=== PATIENT | male | born 1985 | race African-American/Black ===

== ENCOUNTER 2020-05-21 11:57 | Emergency (ER) | payer MEDICAID, OTHER ==
[~2020-05-21] VITALS: Ht 182.9 cm; Wt 106.0 kg
[2020-05-21] MEDS ORDERED: LORAZEPAM 1MG TABLET PO ONE (12:45)
[2020-05-21] MEDS ORDERED: LORAZEPAM 2MG/ML CPJ IV ONE (13:00)
[2020-05-21] MEDS ORDERED: SODIUM CHLORIDE 0.9% 1,000 ML IV ONE (13:00)
[2020-05-21 14:13] LABS: BASOPHILS % 0.8 % (0.0-2.0); EOSINOPHILS % 1.2 % (0.0-5.0); HEMATOCRIT. 47.7 % (42.0-52.0); HEMOGLOBIN. 15.4 g/dL (14.0-18.0); LYMPHOCYTES % 41.8 % (20.0-50.0); MEAN CORPUSCULAR VOLUME 77.4 fL (80.0-94.0); MEAN PLATELET VOLUME 9.5 fl (7.4-10.4); MONOCYTES % 7.4 % (2.0-8.0); NEUTROPHILS % 48.8 % (40.0-76.0); PLATELET 214 x1000/uL (130-400); RED BLOOD CELL COUNT 6.16 mill/uL (4.7-6.1); RED CELL DISTRIBUTION WIDTH 15.4 % (11.6-14.6)
[2020-05-21 14:16] LABS: CHLORIDE 103 mEq/L (98-107)
[2020-05-21 14:21] LABS: ETHANOL BLOOD < 10 mg/dL
[2020-05-21 15:37] VITALS: BP 148/76
[2020-05-21 15:50] LABS: CLARITY URINE CLEAR (CLEAR); COLOR URINE YELLOW (YELLOW); KETONES URINE 3+ (NEGATIVE); LEUKOCYTE ESTERASE URINE NEGATIVE (NEGATIVE); NITRITE URINE NEGATIVE (NEGATIVE); OCCULT BLOOD URINE NEGATIVE (NEGATIVE); PH URINE 6.5 (4.5-8.0); PROTEIN URINE NEGATIVE (NEGATIVE); SPECIFIC GRAVITY URINE 1.016 (1.005-1.030)
[2020-05-21 16:18] LABS: *AMPHETAMINES SCREEN URINE PRESUMTIVE POSITIVE (NEGATIVE); *BARBITURATES SCREEN URINE NEGATIVE (NEGATIVE); *BENZODIAZEPINES SCREEN URINE NEGATIVE (NEGATIVE); CANNABINOID URINE SCREEN PRESUMTIVE POSITIVE (NEGATIVE)
[2020-05-21 16:19] LABS: *COCAINE SCREEN URINE NEGATIVE (NEGATIVE); METHADONE URINE SCREEN NEGATIVE (NEGATIVE); OPIATES URINE SCREEN NEGATIVE (NEGATIVE); PHENCYCLIDINE URINE SCREEN NEGATIVE (NEGATIVE)
== END 2020-05-21 16:40 | disposition home or self-care (01) ==
LOC: ER 12:25
DX: T43.621A Poisoning by amphetamines, accidental (unintentional), initial encounter (principal); R00.2 Palpitations; I10 Essential (primary) hypertension; F15.188 Other stimulant abuse with other stimulant-induced disorder; Y92.89 Other specified places as the place of occurrence of the external cause
CPT/HCPCS: 36415; 80053; 80305; 80307; 80320; 80329; 81003; 85025; 93005; 96361; 96374; 99284; J2060; J7030; G0480

== ENCOUNTER 2020-05-22 12:47 | Emergency (ER) | payer OTHER ==
[~2020-05-22] VITALS: Ht 182.9 cm; Wt 110.0 kg
[2020-05-22] MEDS ORDERED: LORAZEPAM 1MG TABLET PO ONE (13:15)
[2020-05-22 13:52] LABS: CLARITY URINE CLEAR (CLEAR); COLOR URINE YELLOW (YELLOW); KETONES URINE 3+ (NEGATIVE); LEUKOCYTE ESTERASE URINE NEGATIVE (NEGATIVE); NITRITE URINE NEGATIVE (NEGATIVE); OCCULT BLOOD URINE NEGATIVE (NEGATIVE); PH URINE 6.5 (4.5-8.0); PROTEIN URINE NEGATIVE (NEGATIVE); SPECIFIC GRAVITY URINE 1.009 (1.005-1.030)
[2020-05-22 14:01] VITALS: BP 150/99
[2020-05-22 14:05] LABS: BASOPHILS % 0.5 % (0.0-2.0); EOSINOPHILS % 0.4 % (0.0-5.0); HEMATOCRIT. 47.2 % (42.0-52.0); HEMOGLOBIN. 15.5 g/dL (14.0-18.0); LYMPHOCYTES % 21.6 % (20.0-50.0); MEAN CORPUSCULAR VOLUME 76.5 fL (80.0-94.0); MEAN PLATELET VOLUME 8.6 fl (7.4-10.4); MONOCYTES % 8.2 % (2.0-8.0); NEUTROPHILS % 69.3 % (40.0-76.0); PLATELET 201 x1000/uL (130-400); RED BLOOD CELL COUNT 6.18 mill/uL (4.7-6.1); RED CELL DISTRIBUTION WIDTH 15.4 % (11.6-14.6)
[2020-05-22 14:12] LABS: CHLORIDE 104 mEq/L (98-107)
[2020-05-22 14:17] LABS: ETHANOL BLOOD < 10 mg/dL
[2020-05-22 14:21] LABS: CREATINE KINASE 531 IU/L (39-308)
[2020-05-22 14:33] LABS: *AMPHETAMINES SCREEN URINE PRESUMTIVE POSITIVE (NEGATIVE); *BARBITURATES SCREEN URINE NEGATIVE (NEGATIVE); *BENZODIAZEPINES SCREEN URINE NEGATIVE (NEGATIVE); *COCAINE SCREEN URINE NEGATIVE (NEGATIVE); METHADONE URINE SCREEN NEGATIVE (NEGATIVE); OPIATES URINE SCREEN NEGATIVE (NEGATIVE)
[2020-05-22 14:34] LABS: CANNABINOID URINE SCREEN PRESUMTIVE POSITIVE (NEGATIVE); PHENCYCLIDINE URINE SCREEN NEGATIVE (NEGATIVE)
== END 2020-05-22 14:47 | disposition home or self-care (01) ==
LOC: ER 13:57
DX: R53.1 Weakness (principal); M62.82 Rhabdomyolysis; F15.10 Other stimulant abuse, uncomplicated; T43.621A Poisoning by amphetamines, accidental (unintentional), initial encounter; Y92.89 Other specified places as the place of occurrence of the external cause; I10 Essential (primary) hypertension; Z98.890 Other specified postprocedural states
CPT/HCPCS: 36415; 80053; 80305; 80320; 81003; 82550; 84484; 85025; 93005; 99284; G0480

== ENCOUNTER 2020-09-04 09:31 | Emergency (ER) | payer OTHER ==
[~2020-09-04] VITALS: Ht 182.9 cm; Wt 100.0 kg
[2020-09-04] MEDS ORDERED: IBUPROFEN 600MG TABLET PO ONE (10:45)
[2020-09-04] MEDS ORDERED: IBUP-2029 MT (10:53)
[2020-09-04 11:08] VITALS: BP 146/94
== END 2020-09-04 11:11 | disposition home or self-care (01) ==
LOC: ER 09:31
DX: M54.6 Pain in thoracic spine (principal); I10 Essential (primary) hypertension; F15.10 Other stimulant abuse, uncomplicated; Z98.890 Other specified postprocedural states
CPT/HCPCS: 99282

== ENCOUNTER 2021-03-21 10:32 | Emergency (ER) | payer OTHER ==
[~2021-03-21] VITALS: Ht 182.9 cm; Wt 100.0 kg
[~2021-03-21 10:32] MED LIST: IBUP-2029 MT
[2021-03-21 10:37] VITALS: BP 140/81
[2021-03-21] MEDS ORDERED: ASPIRIN 81MG TABLET PO ONE (10:45)
[2021-03-21] MEDS ORDERED: NITROGLYCERIN 0.4MG TABLET SL SL PRN (10:45)
[2021-03-21 11:00] LABS: BASOPHILS % 0.6 % (0.0-2.0); EOSINOPHILS % 2.9 % (0.0-5.0); HEMATOCRIT. 46.1 % (42.0-52.0); HEMOGLOBIN. 14.7 g/dL (14.0-18.0); LYMPHOCYTES % 26.8 % (20.0-50.0); MEAN CORPUSCULAR HEMOGLOBIN 24.8 pg (28.0-32.0); MEAN CORPUSCULAR VOLUME 77.8 fL (80.0-94.0); MEAN PLATELET VOLUME 8.3 fl (7.4-10.4); MONOCYTES % 7.8 % (2.0-8.0); NEUTROPHILS % 61.9 % (40.0-76.0); PLATELET 195 x1000/uL (130-400); RED BLOOD CELL COUNT 5.93 mill/uL (4.7-6.1)
[2021-03-21 11:11] LABS: CHLORIDE 105 mEq/L (98-107)
[2021-03-21] MEDS ORDERED: MAGNESIUM/ALUMINUM HYDROXIDE/SIMETHICONE 30ML UDC PO STA (14:31)
[2021-03-21] MEDS ORDERED: ACETAMINOPHEN 325MG TABLET PO STA (14:31)
[2021-03-21] MEDS ORDERED: VISCOUS LIDOCAINE 2% 15 ML UDC PO STA (14:31)
[2021-03-21] MEDS ORDERED: ONDANSETRON 4MG ODT PO STA (14:31)
[2021-03-21] MEDS ORDERED: MAG355OR21 MT (15:24)
== END 2021-03-21 16:30 | disposition home or self-care (01) ==
LOC: ER 10:32
DX: K29.70 Gastritis, unspecified, without bleeding (principal); I10 Essential (primary) hypertension; Z98.890 Other specified postprocedural states
CPT/HCPCS: 36415; 71045; 80053; 83690; 83880; 84484; 85025; 93005; 99285; Q0162